=== PATIENT | male | born 1990 | race African-American/Black ===

== ENCOUNTER 2017-03-17 11:38 | Emergency (ER) | payer MEDICAID ==
[~2017-03-17] VITALS: Ht 170.2 cm; Wt 93.6 kg
[2017-03-17] MEDS ORDERED: ALBU8HFA IH (13:13)
[2017-03-17] MEDS ORDERED: AZITHROMYCIN 250 MG TABLET PO ONE (13:45)
[2017-03-17] MEDS ORDERED: LIDOCAINE HCL/PF 1% 2 ML VIAL IM ONE (13:45)
[2017-03-17] MEDS ORDERED: CefTRIAXone SODIUM 1 GM/VIAL IM ONE (13:45)
[2017-03-17 13:55] LABS: APPEARANCE,URINE CLOUDY (CLEAR); GLUCOSE, URINE (UA) NEGATIVE (NEGATIVE); KETONES,URINE NEGATIVE (NEGATIVE); LEUKOCYTE ESTERASE ,URINE MODERATE (NEGATIVE); OCCULT BLOOD,URINE NEGATIVE (NEGATIVE); PH,URINE 6.5 (5.0-8.0); PROTEIN,URINE NEGATIVE (NEGATIVE)
[2017-03-17 14:38] VITALS: BP 139/88
[2017-03-17 14:44] LABS: RBC,URINE 0-2 /HPF (0-2); WBC,URINE 26-50 /HPF (0-5)
== END 2017-03-17 14:56 | disposition home or self-care (01) ==
LOC: EMS 11:38
DX: N34.2 Other urethritis (principal); I10 Essential (primary) hypertension; J45.909 Unspecified asthma, uncomplicated; Z88.1 Allergy status to other antibiotic agents
CPT/HCPCS: 81001; 87086; 87491; 87591; 96372; 99284; J0696; J3490